=== PATIENT | female | born 1950 | race Caucasian/White ===

== ENCOUNTER 2016-12-21 18:13 | Emergency (ER) | payer MEDICARE, OTHER ==
[~2016-12-21] VITALS: Ht 157.5 cm; Wt 65.8 kg
[~2016-12-21 18:13] MED LIST: ADVAIR 250-501 EACH INH; ALBUTEROL2.5 MG/3 M INH; BUPROPION HCL150 M2 PO; CELEXA20 MG PO; IPRATROPIU0.2 MG/1 M INH; METFORMIN HCL500 MG PO; PREDNISONE10 MG PO; SIMVASTATIN20 MG PO; XOPENEX HFA15 GM INH
[2016-12-21] MEDS ORDERED: GLYBURIDE5 MG PO (18:30)
[2016-12-21] MEDS ORDERED: MEDROL4 M1 PO (18:30)
== END 2016-12-21 19:50 | disposition home or self-care (01) ==
LOC: ED 18:13
PROC: 0HQ1XZZ Repair Face Skin, External Approach (ICD-10-PCS; principal; 2016-12-21)
DX: S01.511A Laceration without foreign body of lip, initial encounter (principal); S00.83XA Contusion of other part of head, initial encounter; E11.9 Type 2 diabetes mellitus without complications; E78.00 Pure hypercholesterolemia, unspecified; J44.9 Chronic obstructive pulmonary disease, unspecified; F32.9 Major depressive disorder, single episode, unspecified; Z90.710 Acquired absence of both cervix and uterus; Z90.49 Acquired absence of other specified parts of digestive tract; Z88.5 Allergy status to narcotic agent; Z79.52 Long term (current) use of systemic steroids; Z79.899 Other long term (current) drug therapy; W01.0XXA Fall on same level from slipping, tripping and stumbling without subsequent striking against object, initial encounter; Y92.34 Swimming pool (public) as the place of occurrence of the external cause
CPT/HCPCS: 12011; 90471; 90715; 99282

== ENCOUNTER 2018-06-07 17:25 | Emergency (ER) | payer MEDICARE ==
[~2018-06-07] VITALS: Ht 157.5 cm; Wt 54.4 kg
[~2018-06-07 17:25] MED LIST changes: +GLYBURIDE5 MG PO; +MEDROL4 M1 PO; +METHYLPREDNISOLO4 M1 PO; +ZITHROMAX250 MG PO
--- OUTSIDE RECORDS SUMMARY | 2018-06-07 17:28 | XMS ---
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 EFarhan VISIT COUNT (12 MO.) [address] TOTAL 4 NOTE: Visits indicate total known visits. ED/UCC VISIT TRACKING (12 MO.) 06/07/2018 17:25 [facility] [place] TYPE: Emergency COMPLAINT: - SHORTNESS OF BREATH 06/02/2018 14:56 [facility] [place] TYPE: Emergency DIAGNOSES: - Malignant neoplasm of unspecified part of unspecified bronchus or lung - neck pain - Lobar pneumonia, unspecified organism 03/31/2018 12:50 [facility] TYPE: Emergency DIAGNOSES: - pt coming from Hemo [facility]cology d/t referral by . per nurse reprot pt had 2 episodes of not being able to move hip or upper legs. pt hx of lung cancer with metasesis to pelvic region and spine. Concerned for spinal cord compression. 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
[2018-06-07] MEDS ORDERED: LEVOFLOXACIN750 MG PO (17:36)
[2018-06-07] MEDS ORDERED: METHYLPREDNISOLO4 M1 PO (18:46)
[2018-06-07] MEDS ORDERED: AUGMENTIN 875-1 EACH PO (18:46)
--- NOTE | 2018-06-09 00:32 | EKG ---
[facility] [address] [place] [address] Signed Sinus tachycardia with premature atrial complexes Otherwise normal ECG When compared with ECG of 29-JUL-2017 16:22, premature atrial complexes are now present Confirmed by ELIZABETH LEOS MD ([id number]) on 06/09/2018 12:32:50 AM Electronically Signed By: ELIZABETH LEOS MD 06/09/18 0032 PATIENT NAME: QUANG LAYNE Electrocardiogram DATE OF : 54 PHYSICIAN: ELIZABETH LEOS MD REPORT #: [id number] REPORT IS CONFIDENTIAL AND NOT TO BE RELEASED WITHOUT AUTHORIZATION
== END 2018-06-07 20:10 | disposition home or self-care (01) ==
LOC: ED 17:25
DX: J44.1 Chronic obstructive pulmonary disease with (acute) exacerbation (principal); D64.9 Anemia, unspecified; E11.9 Type 2 diabetes mellitus without complications; E78.00 Pure hypercholesterolemia, unspecified; F32.9 Major depressive disorder, single episode, unspecified; Z87.891 Personal history of nicotine dependence; Z90.710 Acquired absence of both cervix and uterus; Z88.5 Allergy status to narcotic agent; Z79.84 Long term (current) use of oral hypoglycemic drugs; Z79.899 Other long term (current) drug therapy
CPT/HCPCS: 71045; 80053; 83735; 84484; 85025; 93005; 93010; 94640; 99284-25